=== PATIENT | male | born 1975 | race Caucasian/White ===

== ENCOUNTER 2021-07-04 08:52 | Emergency (ER) | payer OTHER ==
[~2021-07-04] VITALS: Ht 152.4 cm; Wt 65.8 kg
[2021-07-04 09:19] LABS: ABSOLUTE BASOPHILS 0.1 thou/uL (0.0-0.2); ABSOLUTE EOSINOPHILS 0.2 thou/uL (0.0-0.7); ABSOLUTE LYMPHOCYTES 1.9 thou/uL (0.8-5.3); ABSOLUTE MONOCYTES 0.4 thou/uL (0.0-1.2); ABSOLUTE NEUTROPHILS 4.4 thou/uL (1.6-8.1); BASOPHILS 0.8 %; EOSINOPHILS 2.5 %; HEMATOCRIT 41.5 % (42.0-52.0); HEMOGLOBIN 14.1 gm/dL (14.0-18.0); LYMPHOCYTES 27.1 %; MCH 28.1 pg (26.0-34.0); MCV 82.6 fL (80.0-100.0); MONOCYTES 6.4 %; MPV 7.5 fl. (7.2-11.1); NUCLEATED RBCS 0 /100WBC; PLATELET COUNT* 278 thou/uL (150-400); POLYS 63.2 %; RBC 5.02 mil/uL (4.50-6.00); RDW-CV 14.1 % (10.5-14.5); WBC 6.9 thou/uL (4.0-11.0)
[2021-07-04 09:23] LABS: CALCIUM 8.3 mg/dL (8.5-10.1); POTASSIUM 3.6 mmol/L (3.5-5.1)
[2021-07-04 09:27] LABS: ALBUMIN 3.6 g/dL (3.4-5.0); TOTAL BILIRUBIN 0.6 mg/dL (<0.1-1.0); TOTAL PROTEIN 7.3 g/dL (6.4-8.2)
[2021-07-04 10:44] LABS: URINE BILIRUBIN NEGATIVE (Negative); URINE BLOOD 2+ (Negative); URINE CLARITY CLEAR; URINE COLOR YELLOW; URINE GLUCOSE-RANDOM NEGATIVE (Negative); URINE KETONES NEGATIVE (Negative); URINE LEUKOCYTES-REFLEX NEGATIVE (Negative); URINE NITRITE-REFLEX NEGATIVE (Negative); URINE PROTEIN NEGATIVE (Negative); URINE UROBILINOGEN 0.2 E.U./dl (0.2-1.0)
[2021-07-04 10:52] LABS: AMP/METHAMP Negative (Negative); BARBITURATES Negative (Negative); BENZODIAZEPINES Negative (Negative); COCAINE Negative (Negative); METHADONE Negative (Negative); OPIATES Negative (Negative); PCP Negative (Negative); THC Negative (Negative)
[2021-07-04 10:53] LABS: BACTERIA-REFLEX 1-9 Few /HPF (None Seen); CASTS None Seen /LPF (None Seen); SQUAMOUS NONE SEEN /LPF (0-3); URINE WBC-REFLEX None Seen /HPF (0-5)
[2021-07-04 10:54] LABS: CRYSTALS None Seen /LPF (None Seen); URINE RBC 3-10 Few /HPF (0-2)
[2021-07-04 11:01] VITALS: BP 112/64
--- NOTE | 2021-07-05 09:02 | EKG ---
[place] [address] ELECTROCARDIOGRAM REPORT Name: ANA TRUJILLO Room: [facility]#: [id number] Admission: 07/04/21 Attend Phys: Discharge: 07/04/21 Date of : 75 Date of Service: 07/04/21915 Report #: [id number] THIS REPORT FOR: //name// [facility] ED Test Date: 2021-07-04 Test Time: 09:16:45 Pat Name: ANA TRUJILLO Department: Room: Gender: Produce Wrapper: CD : 1975 Requested By: Kj Lopez Order Number: [id number] MD: Syed Bruce Measurements Intervals Harmans Rate: 73 P: 40 CA: 143 QRS: -17 QRSD: 83 T: 49 QT: 372 QTc: 410 Interpretive Statements Sinus rhythm Borderline left axis deviation No previous ECG available for comparison Electronically Signed On 07-05-2021 9:02:16 CDT by Syed Bruce [email or web address] <ELECTRONICALLY SIGNED> By: Syed Bruce MD, [facility] 07/05/21901 5 5 Syed Bruce MD, FAC /EPI
== END 2021-07-04 11:03 | disposition home or self-care (01) ==
LOC: M.ERS 08:52
PROVIDERS: Family Medicine
DX: F41.0 Panic disorder [episodic paroxysmal anxiety] (principal)